=== PATIENT | female | born 1970 | race Caucasian/White ===

== ENCOUNTER 2024-10-11 07:44 | Observation (INO) | payer OTHER ==
[2024-10-11 08:10] LABS: Absolute Basophils 0.1 K/uL (0-0.5); Absolute Eosinophils 0.1 K/uL (0-0.5); Absolute Lymphocytes (CBC) 2.2 K/uL (0.7-4.9); Absolute Monocytes 0.5 K/uL (0.1-1.3); Absolute Neutrophil 4.8 K/uL (1.8-8.0); Basophils % 0.7 % (0-1.3); Eosinophils % 1.3 % (0-4.4); Hematocrit 40.7 % (36.0-45.0); Hemoglobin 13.6 g/dL (12.0-15.0); Lymphocytes % 29.1 % (15.3-44.8); MCH 30.9 pg (27.0-35.0); MCHC 33.4 g/dL (32.0-36.0); MCV 92.6 fL (80-100); MPV 8.4 fL (7.6-11.3); Neutrophils % 62.9 % (41.7-73.7); Nucleated Red Blood Cells % 0.1 % (0-0); Platelets 240 thou/uL (152-406); Red Cell Distribution Width 13.1 % (12.1-15.2)
[2024-10-11] MEDS ORDERED: ASPIRIN EC 325 MG TABLET PO ONE (08:13)
[2024-10-11] MEDS ORDERED: NITROGLYCERIN 0.4 MG/TAB SL ONE (08:14)
[2024-10-11 08:15] LABS: PT Prothrombin Time 11.4 SECONDS (9.4-12.5); Protime INR 1.09
[2024-10-11 08:28] LABS: ALT/SGPT 23 U/L (13-56); AST/SGOT 17 U/L (15-37); Albumin 3.9 g/dL (3.4-5.0); Albumin/Globulin Ratio 1.1 (1.1-1.8); Alkaline Phosphatase 85 U/L (45-117); Anion Gap 6.7 mEq/L (5.0-15.0); BUN Blood Urea Nitrogen 20 mg/dL (7-18); Bicarbonate 26 mEq/L (21-32); Bilirubin Direct 0.2 mg/dL (0-0.2); Bilirubin Indirect, Calculated 0.4 mg/dL (0.2-0.8); Bilirubin Total 0.6 mg/dL (0.2-1.0); Globulin 3.7 g/dL (2.3-3.5); Glomerular Filtration Rate 67 ml/min (=/>90); Glucose Level 112 mg/dL (74-106); Magnesium 2.1 mg/dL (1.6-2.4); NT PRO-BNP 36 pg/mL (<125); Potassium 3.7 mEq/L (3.5-5.1); Protein, Total 7.6 g/dL (6.4-8.2); Sodium Level 139 mEq/L (136-145)
--- NOTE | 2024-10-11 08:29 | RAD REPORT ---
EXAMINATION: ONE VIEW CHEST XR CLINICAL INDICATION: Female, 53 years old.,CHEST PAIN TECHNIQUE: Frontal chest projection is submitted. Examination is limited by patient positioning and t echnique. COMPARISON: No prior exam. FINDINGS: The lungs are well inflated and clear. No pneumothorax or sizable effusion. The heart is normal in s ize. Mediastinal contours are unremarkable. IMPRESSION: No acute intrathoracic abnormalities.
--- NOTE | 2024-10-11 08:36 | ER ---
Nurse's Notes [facility] Name: Maynor Leroy Age: 53 yrs Sex: Female : 1970 Arrival Date: 10/11/2024 Time: 07:44 Bed 5 Private MD: Diagnosis: Chest pain, unspecified Presentation: 10/11 08:00 Chief complaint: Patient states: Mid sternal chest tightness off/on for 1 month. ll1 Coronavirus screen: Client denies travel out of the [place] in the last 14 days. At this time, the client does not indicate any symptoms associated with coronavirus-19. Ebola Screen: Patient denies travel to an Ebola-affected area in the 21 days before illness onset. Initial Sepsis Screen: Does the patient meet any 2 criteria? No. Patient's initial sepsis screen is negative. Does the patient have a suspected source of infection? No. Patient's initial sepsis screen is negative. Risk Assessment: Do you want to hurt yourself or someone else? Patient reports no desire to harm self or others. Onset of symptoms was September 10, 2024. 08:00 Method Of Arrival: Ambulatory ll1 08:00 Acuity: JAIR 3 ll1 Triage Assessment: 08:01 General: Appears in no apparent distress. Behavior is calm, cooperative, appropriate ll1 for age. Pain: Complains of pain in chest Pain currently is 2 out of 10 on a pain scale. Quality of pain is described as squeezing. Cardiovascular: Reports chest pain. 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 - Infectious Disease History:: Denies. - Social history:: Smoking status: Patient denies any tobacco usage or history of. Screenin:[facility] ED Fall Risk Assessment (Adult) History of falling in the last 3 months, ph including since admission No falls in past 3 months (0 pts) Confusion or Disorientation No (0 pts) Intoxicated or Sedated No (0 pts) Impaired Gait No (0 pts) Mobility Assist Device Used No (0 pt) Altered Elimination No (0 pt) Score/Fall Risk Level 0 - 2 = Low Risk Oriented to surroundings, Maintained a safe environment, Hourly rounding (assess needs \T\ fall precautionary measures) done. Abuse screen: Denies threats or abuse. Denies injuries from another. Nutritional screening: No deficits noted. Tuberculosis screening: No symptoms or risk factors identified. Assessment: 08:23 Reassessment: No changes from previously documented assessment. Patient and/or family ll1 updated on plan of care and expected duration. Pain level reassessed. Patient is alert, oriented x 3, equal unlabored respirations, skin warm/dry/pink. 08:50 Pain: Pain does not radiate. Pain began month. ll1 Vital Signs: 08:00 BP 148 / 72; Pulse 65; Resp 16; Temp 98.1; Pulse Ox 100% on R/A; Weight 68.04 kg; ll1 Height 5 ft. 8 in. ; Pain 2/10; 08:48 BP 129 / 78; Pulse 55; Resp 17; Pulse Ox 100% on R/A; ll1 08:00 Body Mass Index 22.81 (68.04 kg, 172.72 cm) ll1 08:00 Pain Scale: Adult ll1 ED Course: 07:46 Patient arrived in ED. mr 07:49 Lawrence Alexander MD is Attending Physician. sp3 07:51 Arm band placed on Patient placed in an exam room, on a stretcher, on pulse oximetry. ph 07:51 Patient has correct armband on for positive identification. Bed in low position. Call ph light in reach. Side rails up X 1. cardiac monitor on. Pulse ox on. NIBP on. Door closed. Noise minimized. 07:55 Provided Education on: ER procedures and process. ll1 07:59 Oliverio Rowan, MANDEEP is Primary Nurse. ll1 08:01 Triage completed. ll1 08:05 Initial lab(s) drawn, by me, sent to lab. ll1 08:08 Inserted saline lock: 20 gauge in right antecubital area, using aseptic technique. ls5 Blood collected. 08:23 XRAY Chest (1 view) In Process Unspecified. EDMS 08:36 Espinoza Curiel MD is Hospitalizing Provider. sp3 08:49 No provider procedures requiring assistance completed. Patient admitted, IV remains in ll1 place. Patient maintains SpO2 saturation greater than 95% on room air. Administered Medications: 08:23 Drug: Nitroglycerin Sublingual 0.4 mg Sublingual once Route: Sublingual; ll1 08:48 Follow up: Response: No adverse reaction 1 08:23 Drug: Aspirin PO 325 mg PO once Route: PO; 1 08:49 Follow up: Response: No adverse reaction 1 Medication: 07:52 VIS not applicable for this client. ph Outcome: 08:36 Decision to Hospitalize by Provider. sp3 08:49 Admitted to Chief Nurse accompanied by nurse, family with patient, via wheelchair, with [facility] chart, 08:49 Condition: stable 08:49 Instructed on the need for admit, 08:50 Patient left the ED. [facility] Signatures: Dispatcher [employer] EDHallie No, Geoff Tellez mr Farnaz Richter RN RN ph Lewis, Lynsay, RN RN 1 Lawrence Alexander MD MD sp3 Praveen Jamison ls5 Corrections: (The following items were deleted from the chart) 08:00 08:00 PSHx: None; 1 1
--- NOTE | 2024-10-11 08:36 | EDPHYS ---
Physician Documentation [facility] Name: Maynor Leroy Age: 53 yrs Sex: Female : 1970 Arrival Date: 10/11/2024 Time: 07:44 Bed 5 Private MD: ED Physician Lawrence Alexander HPI: 10/11 08:07 This 53 yrs old Female presents to ER via Ambulatory with complaints of Chest Tightness.sp3 08:07 53-year-old female with a history of "prediabetes" presents to the ED with chest pain. sp3 She states the pain has been off and on for the last month she has also had bradycardia at night as measured by Holter monitor. She had an abnormal stress test at cardiology office and was being considered for a heart cath. She presents today after her visit yesterday for continued and worsening chest pressure. She denies any other associated symptoms including headache, fever, URI symptoms, shortness of breath, back pain, abdominal pain, nausea, vomiting, diarrhea, syncope, near syncope, or any other signs or symptoms on ROS at this time.. 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 - Infectious Disease History:: Denies. - Social history:: Smoking status: Patient denies any tobacco usage or history of. ROS: 08:08 Constitutional: Negative for fever, chills, and weight loss, Eyes: Negative for injury, sp3 pain, redness, and discharge, ENT: Negative for injury, pain, and discharge, Neck: Negative for injury, pain, and swelling, Respiratory: Negative for shortness of breath, cough, wheezing, and pleuritic chest pain, Abdomen/GI: Negative for abdominal pain, nausea, vomiting, diarrhea, and constipation, Back: Negative for injury and pain, MS/Extremity: Negative for injury and deformity, Skin: Negative for injury, rash, and discoloration, Neuro: Negative for headache, weakness, numbness, tingling, and seizure, Psych: Negative for depression, anxiety, suicide ideation, homicidal ideation, and hallucinations, Allergy/Immunology: Negative for hives, rash, and allergies, Endocrine: Negative for neck swelling, polydipsia, polyuria, polyphagia, and marked weight changes, Hematologic/Lymphatic: Negative for swollen nodes, abnormal bleeding, and unusual bruising, 08:08 All other systems are negative, Exam: 08:08 Constitutional: This is a well developed, well nourished patient who is awake, alert, sp3 and in no acute distress. Head/Face: Normocephalic, atraumatic. Eyes: Pupils equal round and reactive to light, extra-ocular motions intact. Lids and lashes normal. Conjunctiva and sclera are non-icteric and not injected. Cornea within normal limits. Periorbital areas with no swelling, redness, or edema. Neck: Trachea midline, no thyromegaly or masses palpated, and no cervical lymphadenopathy. Supple, full range of motion without nuchal rigidity, or vertebral point tenderness. No Meningismus. Chest/axilla: Normal chest wall appearance and motion. Nontender with no deformity. No lesions are appreciated. Cardiovascular: Regular rate and rhythm with a normal S1 and S2. No gallops, murmurs, or rubs. Normal PMI, no JVD. No pulse deficits. Respiratory: Lungs have equal breath sounds bilaterally, clear to auscultation and percussion. No rales, rhonchi or wheezes noted. No increased work of breathing, no retractions or nasal flaring. Abdomen/GI: Soft, non-tender, with normal bowel sounds. No distension or tympany. No guarding or rebound. No evidence of tenderness throughout. Back: No spinal tenderness. No costovertebral tenderness. Full range of motion. Skin: Warm, dry with normal turgor. Normal color with no rashes, no lesions, and no evidence of cellulitis. MS/ Extremity: Pulses equal, no cyanosis. Neurovascular intact. Full, normal range of motion. Neuro: Awake and alert, GCS 15, oriented to person, place, time, and situation. Cranial nerves II-XII grossly intact. Motor strength 5/5 in all extremities. Sensory grossly intact. Cerebellar exam normal. Normal gait. Psych: Awake, alert, with orientation to person, place and time. Behavior, mood, and affect are within normal limits. 08:08 ECG was reviewed by the Attending Physician. EKG demonstrates normal sinus rhythm at 60 bpm with normal intervals, high voltage, normal axis, nonspecific ST/T changes without evidence of acute ischemia. Vital Signs: 08:00 BP 148 / 72; Pulse 65; Resp 16; Temp 98.1; Pulse Ox 100% on R/A; Weight 68.04 kg; ll1 Height 5 ft. 8 in. ; Pain 2/10; 08:48 BP 129 / 78; Pulse 55; Resp 17; Pulse Ox 100% on R/A; ll1 08:00 Body Mass Index 22.81 (68.04 kg, 172.72 cm) ll1 08:00 Pain Scale: Adult ll1 MDM: 07:49 Medical Screening Exam initiated sp3 08:09 Data reviewed: vital signs, nurses notes, lab test result(s), EKG, radiologic studies. sp3 ED course: 53-year-old female with chest pressure. Differential diagnosis includes acute coronary syndrome, angina, NSTEMI, pleurisy, musculoskeletal pain, other pulmonary process, among others. I am not highly suspicious of vascular or aortic process, sepsis, shock or any other critical pathology. I discussed the case with cardiology who will be consulting on the case and most likely performing heart catheterization. Will admit to hospitalist if troponin negative for further management.. 08:35 ED course: Discussed with cardiology and they are taking patient to [facility] now. Labs sp3 still pending. Patient will be admitted to hospitalist service.. 10/11 07:56 Order name: Basic Metabolic Panel; Complete Time: 08:38 sp3 10/11 07:56 Order name: CBC with Diff; Complete Time: 08:35 3 10/11 07:56 Order name: LFT's; Complete Time: 08:38 3 10/11 07:56 Order name: Magnesium; Complete Time: 08:38 sp3 10/11 07:56 Order name: NT PRO-BNP; Complete Time: 08:38 sp3 10/11 07:56 Order name: PT-INR; Complete Time: 08:35 3 10/11 07:56 Order name: Troponin HS; Complete Time: 08:38 sp3 10/11 07:56 Order name: XRAY Chest (1 view); Complete Time: 08:35 sp3 10/11 08:38 Order name: CL LEFT HEART WITHOUT LV EDMS 10/11 07:56 Order name: Cardiac monitoring; Complete Time: 08:08 sp3 10/11 07:56 Order name: EKG - Nurse/Tech; Complete Time: 08:08 sp3 10/11 07:56 Order name: IV Saline Lock; Complete Time: 08:08 sp3 10/11 07:56 Order name: Labs collected and sent; Complete Time: 08:08 sp3 10/11 07:56 Order name: O2 Per Protocol; Complete Time: 08:08 sp3 10/11 07:56 Order name: O2 Sat Monitoring; Complete Time: 08:08 sp3 10/11 08:06 Order name: NPO; Complete Time: 08:11 sp3 Administered Medications: 08:23 Drug: Nitroglycerin Sublingual 0.4 mg Sublingual once Route: Sublingual; ll1 08:48 Follow up: Response: No adverse reaction ll1 08:23 Drug: Aspirin PO 325 mg PO once Route: PO; ll1 08:49 Follow up: Response: No adverse reaction ll1 Disposition Summary: 10/11/24 08:36 Hospitalization Ordered Notes: Hospitalization Status: Inpatient Admission sp3 Provider: Espinoza Curiel sp3 Location: Telemetry/[facility] (Inpatient) sp3 Condition: Stable sp3 Problem: an acute exacerbation sp3 Symptoms: have worsened sp3 Bed/Room Type: Standard sp3 Room Assignment: sp3 Diagnosis - Chest pain, unspecified sp3 Discharge Instructions: - Discharge Summary Sheet eb Forms: - SBAR form eb - Medication Reconciliation Form sp3 - Leadership Thank You Letter sp3 Signatures: Dispatcher [employer] Oliverio Landry RN RN ll1 Lawrence Alexander MD MD sp3 Corrections: (The following items were deleted from the chart) 07:56 07:56 Chest Single View+RAD.RAD.BRZ ordered. EDMS EDMS 08:00 08:00 PSHx: None; ll1 ll1
[2024-10-11 08:37] LABS: Troponin High Sensitivity < 3.0 pg/mL (<58.9)
[2024-10-11] MEDS ORDERED: MIDAZOLAM HCL 2 MG/2 ML INJ ONE (08:53)
[2024-10-11] MEDS ORDERED: LIDOCAINE 1% 20 ML MDV ONE (08:53)
[2024-10-11] MEDS ORDERED: HEPARIN 10,000 UNIT/10 ML VIAL IV ONE (08:53)
[2024-10-11] MEDS ORDERED: HEPA 1000U/500MLS 2,000 UNIT/1,000 ML BAG IV ONE (08:53)
[2024-10-11] MEDS ORDERED: CLOPIDOGREL 75 MG TABLET ONE (08:54)
[2024-10-11] MEDS ORDERED: NA CHLORIDE 0.9% 500 ML ONE ×2 (08:54→08:56)
[2024-10-11] MEDS ORDERED: HEPARIN 5000 UNIT/ML 1 ML VIAL ONE (08:54)
[2024-10-11] MEDS ORDERED: ATROPINE SULF 1 MG/10 ML SYR IV ONE (08:54)
[2024-10-11] MEDS ORDERED: TICAGRELOR 90 MG TABLET PO ONE (08:55)
[2024-10-11] MEDS ORDERED: ASPIRIN 325 MG TAB ONE (08:56)
[2024-10-11] MEDS ORDERED: FENTANYL CITR 100 MCG/2 ML ONE (08:58)
[2024-10-11] MEDS ORDERED: HYDROCODONE/APAP 5/325 MG TAB PO PRN (09:23)
[2024-10-11] MEDS ORDERED: ONDANSETRON 4 MG/2 ML VIAL IV PRN (09:23)
[2024-10-11] MEDS ORDERED: MORPHINE 2 MG/ML SYR IV PRN (09:23)
[2024-10-11] MEDS ORDERED: NA CHLORIDE 0.9% 1,000 ML IV SCH (09:23)
--- NOTE | 2024-10-11 10:42 | P.CNS ---
Date of Consult: 10/11/24 Chief Complaint: chest pain History of Present Illness: Patient with no significant PMH presented with chest pain, pressure in nature, no radiation, no other cardiac symptoms except for bradycardia. Allergies No Known Allergies Allergy (Unverified 10/11/24 08:35) Home medications list reviewed: Yes Review of Systems 10-point ROS is otherwise unremarkable Physical Examination Temp Pulse Resp BP Pulse Ox 99.0 F 51 16 106/61 10/11/24 09:30 10/11/24 10:20 10/11/24 10:20 10/11/24 10:20 General: Alert, In no apparent distress HEENT: Atraumatic, PERRLA, Mucous membr. moist/pink, EOMI, Sclerae nonicteric Neck: Supple, 2+ carotid pulse no bruit, No LAD, Without JVD or thyroid abnormality Respiratory: Clear to auscultation bilaterally, Normal air movement Cardiovascular: Regular rate/rhythm, Normal S1 S2 Gastrointestinal: Normal bowel sounds, No tenderness Musculoskeletal: No tenderness Integumentary: No rashes Neurological: Normal gait, Normal speech, Normal tone, Normal affect Lymphatics: No axilla or inguinal lymphadenopathy Laboratory Data (last 24 hrs) 10/11/24 10/11/24 10/11/24 07:50 07:50 07:50 WBC 7.60 Hgb 13.6 Hct 40.7 Plt Count 240 PT 11.4 INR 1.09 Sodium 139 Potassium 3.7 BUN 20 H Creatinine 1.01 Glucose 112 H Magnesium 2.1 Total Bilirubin 0.6 AST 17 ALT 23 Alkaline Phosphatase 85 - Problems (1) Chest pain Current Visit: Yes Status: Acute Plan: concern for angina, patient says she have seen her pharmacist and was told she have an abnormal stress test. Coronary angiogram done and shows moderate mid LAD intramyocardial bridge. avoid NTG, CCB. BB if BP and HR permits
--- NOTE | 2024-10-11 12:02 | P.SSS ---
Patient History Date of Service: 10/11/24 Primary Care Provider: Dr. Baxter Reason for admission: chest pain Allergies No Known Allergies Allergy (Unverified 10/11/24 08:35) - Past Medical/Surgical History Has patient received pneumonia vaccine in the past: No Diabetic: No -: Prediabetes -: Psychosocial/ Personal History: Lives at home with family, works as a PA - Social History Smoking Status: Never smoker Alcohol use: No CD- Drugs: No Caffeine use: Yes Place of Residence: Home Review of Systems 10-point ROS is otherwise unremarkable Cardiovascular: Chest Pain Physical Examination - Vital Signs Temperature: 99.0 F Blood Pressure: 113/60 Pulse: 46 Respirations: 16 - Physical Exam General: Alert, In no apparent distress, Oriented x3 HEENT: Atraumatic Respiratory: Normal air movement Cardiovascular: Regular rate/rhythm, Normal S1 S2 Gastrointestinal: Non-distended Integumentary: No rashes Neurological: Normal speech, Normal affect - Studies Laboratory Data (last 24 hrs) 10/11/24 10/11/24 10/11/24 07:50 07:50 07:50 WBC 7.60 Hgb 13.6 Hct 40.7 Plt Count 240 PT 11.4 INR 1.09 Sodium 139 Potassium 3.7 BUN 20 H Creatinine 1.01 Glucose 112 H Magnesium 2.1 Total Bilirubin 0.6 AST 17 ALT 23 Alkaline Phosphatase 85 Treatment Summary: 53-year-old female presented to the hospital for chest pain. She had a recent outpatient stress test that was positive and had began having chest pain recently. Her initial high sensitive troponin was negative and EKG was negative for STEMI criteria. ED physician spoke with cardiology who recommended coronary angiogram. Patient was admitted under observation and coronary angiogram was performed. There is no need for PCI, myocardial bridge was identified. Cardiology recommends tight control of blood pressure and heart rate and outpatient follow-up in 1 to 2 weeks. Patient stable for discharge status post coronary angiogram. - Disposition Discharge Date: 10/11/24 Disposition: ROUTINE DISCHARGE Condition: GOOD Diet: Regular Activity: Ad may Critical Care: No Time Spent Managing Pts Care (In Minutes): 55
--- NOTE | 2024-10-11 20:29 | OP ---
Date of Procedure: 10/11/2024 Surgeon: Danilo Dang Procedures Performed: 1.Left heart catheterization. 2.Selective coronary angiogram. Indication For Procedure: Unstable angina. Complications: None. Estimated Blood Loss: Less than 50 cc. Access: Right radial, closed by TR band. Sedation Time: 20 minutes with 1 of Versed and 25 of fentanyl. Description Of Procedure: After risks, and benefits, and alternatives were explained to the patient, patient agreed to proceed with procedure and signed informed consent. The patient was brought back to the mobile home laborer, prepped and draped in sterile fashion. Time-out was performed. Sedation was admini stered. Next, right radial access was obtained using ultrasound-guided micropuncture technique. Tig er 4.0 catheter was advanced over a J-wire to the LV cavity. LVEDP was obtained. Pullback did not s how any gradient. Same catheter was used for selective angiogram of the left and right coronary syst ems. At the end of procedure, catheter was removed over a J-wire. Sheath was removed. TR band was applied. Hemostasis was achieved and the patient was moved back to Recovery in stable condition. Findings: 1.Left main normal. 2.LAD; proximal mild luminal irregularities with mid moderate intramyocardial bridge, distal mild sukumar lema irregularities. 3.Left circ; mild luminal irregularities. 4.RCA; small mild luminal irregularities. Assessment And Plan: Mid LAD moderate intramyocardial bridge. Normal filling pressure. LVEDP is 8 mmHg. Plan will be to continue medical management. Avoid nitrates. VANESSA/MODL Voice ID: [id number] Report ID: [id number]
[2024-10-11] MEDS ORDERED: ATORVASTATIN 40 MG TAB PO SCH (21:00)
[2024-10-12] MEDS ORDERED: ENOXAPARIN 40 MG/0.4 ML SQ SCH (09:00)
[2024-10-12] MEDS ORDERED: ASPIRIN EC 81 MG TAB PO SCH (09:00)
--- NOTE | 2024-10-12 11:52 | EKG ---
Test Date: 2024-10-11 Test Time: 07:56:56 Inhalation Therapist: LML MEASUREMENT RESULTS: Intervals: Rate: 58 SD: 140 QRSD: 82 QT: 436 QTc: 428 [place]: P: 89 SD: 140 QRS: 95 T: 66 INTERPRETIVE STATEMENTS: Sinus bradycardia Right atrial enlargement Borderline ECG No previous ECG available for comparison Electronically Signed On 10-12-24 11:52:18 [employer]ICE PRESIDENT SALES by Danilo Dang
[2024-10-13 02:03] VITALS: BP 113/60; TEMP 99; O2SAT 100; BMI 22.8
== END 2024-10-11 12:05 | disposition home or self-care (01) ==
LOC: ER 07:44 → ERHOLD 08:42
PROVIDERS: ADMIT Hospitalist; ATTEND Hospitalist
DX: I25.110 Atherosclerotic heart disease of native coronary artery with unstable angina pectoris (principal); Q24.5 Malformation of coronary vessels; R73.03 Prediabetes
CPT/HCPCS: 93005; 85025; 80048; 36415; 83735; 85610; 80076; 84484; 83880; 71045; 93458; 76937; 99285; C1893; Q9966; J1644; J2003; J2250; J3010; G0378 ×2; J7040 ×2; 99152; J0461